=== PATIENT | female | born 1985 ===

== ENCOUNTER 2018-10-02 23:04 | Emergency (ER) | payer SELFPAY ==
[2018-10-03] MEDS ORDERED: Naproxen 500 MG TAB PO ONE ×2 (01:59→02:16)
--- NOTE | 2018-10-03 02:02 | ED PDOC ---
HPI: Abdomen Chief Complaint (Provider): abdominal pain History Per: Patient History/Exam Limitations: no limitations Onset/Duration Of Symptoms: Days (1) Current Symptoms Are (Timing): Still Present Location Of Pain/Discomfort: Suprapubic Quality Of Discomfort: Cramping Additional Complaint(s): 33 y/o female presents for evaluation of lower pelvic cramping x 1 day. PAtient states she got her menstrual period today, which comes every 28 days, but she never has pain like this with periods. Patient reports normal amount of bleeding for her periods, just pain is new. Denies fever, nausea/vomiting, chest pain, dysuria, hematuria, vaginal discharge. <Daysi Chávez - Last Filed: 10/03/18 05:05> <Joce Cornelius - Last Filed: 10/03/18 05:51> Time Seen by Provider: 10/03/18 01:45 Chief Complaint (Nursing): Abdominal Pain Past Medical History Reviewed: Historical Data, Nursing Documentation, Vital Signs Vital Signs: Last Vital Signs Temp 98.2 F 10/03/18 00:26 Pulse 77 10/03/18 00:26 Resp 16 10/03/18 00:26 BP 109/69 10/03/18 00:26 Pulse Ox 98 10/03/18 00:26 Primary Care Provider: Tammie Hammond - Medical History PMH: No Chronic Diseases - Surgical History Surgical History: Appendectomy - Family History Family History: States: Unknown Family Hx - Living Arrangements Living Arrangements: With Family - Immunization History Hx Tetanus Toxoid Vaccination: No Hx Influenza Vaccination: Yes Hx Pneumococcal Vaccination: No <Daysi Chávez - Last Filed: 10/03/18 05:05> Vital Signs: Last Vital Signs Temp 98.2 F 10/03/18 00:26 Pulse 77 10/03/18 00:26 Resp 16 10/03/18 00:26 BP 109/69 10/03/18 00:26 Pulse Ox 98 10/03/18 05:06 <Joce Cornelius - Last Filed: 10/03/18 05:51> - Home Medications Home Medications: Ambulatory Orders Medication Instructions Recorded Dicyclomine [Bentyl] 20 mg PO TID #30 tab 07/30/17 Famotidine [Pepcid] 20 mg PO BID #20 tab 07/30/17 Ondansetron ODT [Zofran ODT] 4 mg PO .Q4-6H PRN #20 odt 07/30/17 - Allergies Allergies/Adverse Reactions: Allergies Allergy/AdvReac Type Severity Reaction Status Date / Time No Known Allergies Allergy Verified 07/30/17 00:39 Review of Systems ROS Statement: Except As Marked, All Systems Reviewed And Found Negative Genitourinary Female: Positive for: Vaginal Bleeding, Pelvic Pain <Daysi Chávez C - Last Filed: 10/03/18 05:05> Physical Exam - Reviewed Nursing Documentation Reviewed: Yes Vital Signs Reviewed: Yes - Physical Exam Appears: Positive for: Well, Non-toxic, No Acute Distress Head Exam: Positive for: ATRAUMATIC, NORMAL INSPECTION, NORMOCEPHALIC Skin: Positive for: Normal Color Eye Exam: Positive for: Normal appearance ENT: Positive for: Normal ENT Inspection Cardiovascular/Chest: Positive for: Regular Rate, Rhythm Respiratory: Positive for: Normal Breath Sounds Gastrointestinal/Abdominal: Positive for: Bowel Sounds, Soft, Tenderness (suprapubic) Back: Positive for: Normal Inspection Extremity: Positive for: Normal ROM Neurological/Psych: Positive for: Awake, Alert, Oriented (x3) <Daysi Chávez C - Last Filed: 10/03/18 05:05> - ECG O2 Sat by Pulse Oximetry: 98 - Progress ED Course And Treament: -upreg -udip -TV u/s -naproxen PO <Daysi Chávez C - Last Filed: 10/03/18 05:05> - Laboratory Results Lab Results: Urine Color Red (YELLOW) 10/03/18 02:23 Urine Clarity Cloudy (Clear) 10/03/18 02:23 Urine pH 6.0 (5.0-8.0) 10/03/18 02:23 Ur Specific [place] 1.021 (1.003-1.030) 10/03/18 02:23 Urine Protein 100 mg/dL (NEGATIVE) 10/03/18 02:23 Urine Glucose (UA) Neg mg/dL (NEGATIVE) 10/03/18 02:23 Urine Ketones Negative mg/dL (NEGATIVE) 10/03/18 02:23 Urine Blood Large (NEGATIVE) 10/03/18 02:23 Urine Nitrate Negative (NEGATIVE) 10/03/18 02:23 Urine Bilirubin Negative (NEGATIVE) 10/03/18 02:23 Urine Urobilinogen 0.2-1.0 mg/dL (0.2-1.0) 10/03/18 02:23 Ur Leukocyte Esterase Neg [place]/uL (Negative) 10/03/18 02:23 Urine RBC (Auto) 6611 /hpf (0-3) H 10/03/18 02:23 Urine Microscopic WBC 9 /hpf (0-5) H 10/03/18 02:23 - Progress Re-evaluation Time: 05:50 Condition: Re-examined, Improved <Joce Cornelius - Last Filed: 10/03/18 05:51> Medical Decision Making Medical Decision Makin Pelvis US Findings: Anteverted uterus measuring 10x4.7x5.9 cm. Unremarkable endometrium. Right ovarian simple cyst measuring 1.9 cm. Left ovarian simple cyst measuring 1.4 cm. Unremarkable endometrium measuring 8.7 mm in its maximum thickness. Impression: Bilateral simple ovarian cysts. No evidence of ovarian torsion. No free pelvic fluid. <Joce Cornelius - Last Filed: 10/03/18 05:51> Disposition - Patient ED Disposition Is Patient to be Admitted: No - Disposition Disposition Time: 05:00 Patient Signed Over To: Joce Cornelius Handoff Comments: pending u/s <Daysi Chávez - Last Filed: 10/03/18 05:05> - Patient ED Disposition Is Patient to be Admitted: No Doctor Will See Patient In The: Office Counseled Patient/Family Regarding: Studies Performed, Diagnosis, Need For Followup - Disposition Disposition: Routine/Home <Joce Cornelius - Last Filed: 10/03/18 05:51> - Clinical Impression Clinical Impression: Menstrual cramps, Ovarian cyst - Disposition Referrals: [facility] [Outside] Condition: GOOD Additional Instructions: ASHISH HUERTA, thank you for letting us take care of you today. Your provider was Joce Cornelius MD and you were treated for ABD PAIN. The emergency medical care you received today was directed at your acute symptoms. If you were prescribed any medication, please fill it and take as directed. It may take several days for your symptoms to resolve. Return to the Emergency Department if your symptoms worsen, do not improve, or if you have any other problems. Please contact your doctor or call one of the physicians/clinics you have been referred to that are listed on the Patient Visit Information form that is included in your discharge packet. Bring any paperwork you were given at discharge with you along with any medications you are taking to your follow up visit. Our treatment cannot replace ongoing medical care by a primary care provider outside of the emergency department. Thank you for allowing the [facility] team to be part of your care today. If you had an X-Ray or CT scan: A Radiologist will review the ED reading if any change in treatment is needed we will contact you. If you had a blood, urine, or wound culture: It will take several days for the results, if any change in treatment is needed we will contact you. Instructions: Ovarian Cysts
[2018-10-03 02:33] LABS: URINE BILIRUBIN NEGATIVE (NEGATIVE); URINE BLOOD LARGE (NEGATIVE); URINE CLARITY CLOUDY (Clear); URINE COLOR RED (YELLOW); URINE GLUCOSE (UA) NEG (NEGATIVE); URINE LEUKOCYTE ESTERASE NEG Leu/uL (Negative); URINE PROTEIN 100 mg/dL (NEGATIVE); URINE UROBILINOGEN 0.2-1.0 mg/dL (0.2-1.0)
[2018-10-03 06:19] VITALS: BP 138/69; PULSE 87; RESP 18; TEMP 98.4; O2SAT 99
--- NOTE | 2018-10-03 10:03 | US ---
Date of service: 10/03/2018 HISTORY: pelvic pain COMPARISON: None available. TECHNIQUE: Transabdominal only FINDINGS: UTERUS: Measures 10.0 x 4.7 x 5.9 cm. Normal in size and appearance. No fibroid or other mass lesion seen. ENDOMETRIUM: Measures 9 mm in diameter. Unremarkable. CERVIX: No cervical abnormality identified. RIGHT OVARY: Measures 4.2 x 2.3 x 2.3 cm. No solid mass. Normal flow. 1.9 cm follicular cyst. LEFT OVARY: Measures 3.0 x 2.0 x 2.4 cm. No solid mass. Normal flow. 1.4 cm follicular cyst. FREE FLUID: No significant free fluid noted. OTHER FINDINGS: None. IMPRESSION: Unremarkable pelvic ultrasound. The preliminary findings for this examination were reported by [facility] at 5:22 a.m. on 10/03/2018. There is concurrence of this report with the preliminary findings.
== END 2018-10-03 06:18 | disposition home or self-care (01) ==
LOC: H.ER 23:04
DX: N83.201 Unspecified ovarian cyst, right side (principal); N94.6 Dysmenorrhea, unspecified